=== PATIENT | male | born 1990 | race Caucasian/White ===

== ENCOUNTER → 2024-02-28 | Outpatient (CLI) | payer BC ==
--- NOTE | 2024-02-28 11:01 | XR ---
EXAMINATION TYPE: XR KUB DATE OF EXAM: 02/28/2024 COMPARISON: NONE HISTORY: Pain TECHNIQUE: One view abdominal series FINDINGS: The osseous structures are intact. The bowel gas pattern is nonspecific. Lung bases are clear. No d efinite calcifications are seen. IMPRESSION: 1. Nonspecific abdomen. [facility] Nisreen Abdi, , 02/28/2024 10:58 AM
== END | disposition home or self-care (01) ==
LOC: RADXRYALE 09:44
PROVIDERS: ATTEND Internal Medicine
DX: N20.1 Calculus of ureter (principal)
CPT/HCPCS: 74018